=== PATIENT | female | born 1985 ===

== ENCOUNTER 2018-07-30 08:43 | Day surgery (SDC) | payer BC ==
[2018-07-30 09:06] VITALS: BMI 25.0
[2018-07-30] MEDS ORDERED: Propofol 10 mg/ml Inj (20 ML) ONE (10:47)
[2018-07-30] MEDS ORDERED: Lactated Ringer's 500 ML IV SCH (11:00)
[2018-07-30 11:53] VITALS: BP 116/64; PULSE 74; RESP 19; TEMP 98.2; O2SAT 99
== END 2018-07-30 11:50 | disposition home or self-care (01) ==
LOC: C.ENDO 08:43
PROVIDERS: ATTEND Internal Medicine Gastroenterology
DX: K29.70 Gastritis, unspecified, without bleeding (principal); K30 Functional dyspepsia
CPT/HCPCS: 43239; 84703; 88305; 88312; 88313; 88342; J2001; J2704; J3010; J7120